=== PATIENT | female | born 1995 | race Caucasian/White ===

== ENCOUNTER 2017-07-03 12:55 | Emergency (ER) | payer OTHER ==
[~2017-07-03] VITALS: Ht 160 cm; Wt 54.4 kg
[~2017-07-03 12:55] MED LIST: BACTRIM DS TAB1 EACH PO; NORCO 5-325 TA1 EACH PO; TRAMADOL 50 MG50 MG PO
[2017-07-03 13:17] LABS: URINE BILIRUBIN NEGATIVE (Negative); URINE BLOOD NEGATIVE (Negative); URINE COLOR YELLOW; URINE GLUCOSE-RANDOM* NEGATIVE (Negative); URINE KETONES 1+ (Negative); URINE NITRITE NEGATIVE (Negative); URINE PROTEIN (DIPSTICK) NEGATIVE (Negative); URINE UROBILINOGEN 0.2 E.U./dl (0.2-1.0)
[2017-07-03 13:27] LABS: HEMATOCRIT 43.1 % (37.0-47.0); HEMOGLOBIN 14.4 gm/dL (12.0-15.0); MCH 30.1 pg (26.0-34.0); MCHC 33.4 g/dL (28.0-37.0); RBC 4.78 mil/uL (4.20-5.00); RDW 12.9 % (10.5-14.5); WBC 12.2 thou/uL (4.0-11.0)
[2017-07-03 13:43] LABS: CALCIUM 9.5 mg/dL (8.5-10.1); CREATININE 0.8 mg/dL (0.6-1.0); POTASSIUM 3.4 mmol/L (3.5-5.1)
[2017-07-03 13:51] LABS: ALBUMIN 4.3 g/dL (3.4-5.0); TOTAL BILIRUBIN 0.3 mg/dL (<0.1-1.0); TOTAL PROTEIN 8.3 g/dL (6.4-8.2)
[2017-07-03 13:52] LABS: CASTS None Seen /LPF (None Seen); CRYSTALS None Seen /LPF (None Seen); SQUAMOUS >10 Many /LPF (0-3); URINE RBC 0-2 Rare /HPF (0-2); URINE WBC 0-5 Rare /HPF (0-5)
[2017-07-03 13:53] LABS: BACTERIA 1-9 Few /HPF (None Seen)
[2017-07-03] MEDS ORDERED: KEFLEX500 MG PO (15:05)
[2017-07-03 15:12] VITALS: BP 118/72
[2017-07-04 19:09] LABS: CHLAMYDIA TRACHOMATIS-PCR Positive (Negative); NEISSERIA GONORRHEA-PCR Negative (Negative)
== END 2017-07-03 15:12 | disposition home or self-care (01) ==
LOC: ER 12:55
PROVIDERS: Physician Assistant
DX: O34.81 Maternal care for other abnormalities of pelvic organs, first trimester (principal); F17.210 Nicotine dependence, cigarettes, uncomplicated; F10.99 Alcohol use, unspecified with unspecified alcohol-induced disorder; Z3A.14 14 weeks gestation of pregnancy